=== PATIENT | female | born 1980 | race Caucasian/White ===

== ENCOUNTER 2020-02-23 13:22 | Emergency (ER) | payer BC ==
[~2020-02-23] VITALS: Ht 167.6 cm; Wt 57.6 kg
[2020-02-23] MEDS ORDERED: INTESTINEX680 M1 PO (19:08)
[2020-02-23] MEDS ORDERED: NITROFURANTOIN100 MG PO (19:08)
[2020-02-23] MEDS ORDERED: BUTALBIT-ACETA1 EACH PO (19:08)
[2020-02-23] MEDS ORDERED: XANAX2 MG PO (19:08)
[2020-02-23] MEDS ORDERED: DICLOFENAC SOD100 MG PO (19:08)
== END 2020-02-23 19:25 ==
LOC: ER 13:22
DX: N12 Tubulo-interstitial nephritis, not specified as acute or chronic (principal); N39.0 Urinary tract infection, site not specified; Z20.828 Contact with and (suspected) exposure to other viral communicable diseases

== ENCOUNTER 2020-09-07 11:37 | Emergency (ER) | payer OTHER ==
[~2020-09-07] VITALS: Ht 167.6 cm; Wt 59.0 kg
[~2020-09-07 11:37] MED LIST: BUTALBIT-ACETA1 EACH PO; DICLOFENAC SOD100 MG PO; INTESTINEX680 M1 PO; NITROFURANTOIN100 MG PO; XANAX2 MG PO
[2020-09-07] MEDS ORDERED: KETO10TA2 PO (14:13)
[2020-09-07] MEDS ORDERED: VALTREX1000 MG PO (14:13)
[2020-09-07] MEDS ORDERED: MUPIROCIN22 GM TOP (14:13)
== END 2020-09-07 14:21 | disposition home or self-care (01) ==
LOC: ER 11:37
DX: N89.8 Other specified noninflammatory disorders of vagina (principal); R10.2 Pelvic and perineal pain

== ENCOUNTER → 2020-10-22 | Emergency (ER) | payer OTHER ==
[~2020-10-22] VITALS: Ht 167.6 cm; Wt 59.0 kg
[~2020-10-22] MED LIST changes: +CYCLOBENZAPRINE10 MG PO; +KETO10TA2 PO; +MEDROLPACK PO; +MUPIROCIN22 GM TOP; +PERCOCET 5-3251 EACH PO; +VALTREX1000 MG PO
== END | disposition home or self-care (01) ==
LOC: ER 11:57
DX: M51.36 Other intervertebral disc degeneration, lumbar region (principal); M54.5 Low back pain